=== PATIENT | male | born 1950 | race Hispanic/Latino ===

== ENCOUNTER 2024-07-15 15:16 | Inpatient (IN) | payer MEDICARE ==
[~2024-07-15] VITALS: Ht 162.6 cm; Wt 68.0 kg
[2024-07-15 16:45] VITALS: PULSE 68; RESP 17; TEMP 97.7
[2024-07-15] MEDS ORDERED: ONDANSETRON HCL INJ 2MG/ML 2ML 2 MG/ML VIAL ONE (17:00)
[2024-07-15] MEDS ORDERED: SODIUM CHLORIDE 0.9% 1000ML 1,000 ML ONE (17:00)
[2024-07-15] MEDS: SODIUM CHLORIDE 0.9% 1000ML 1,000 ML IV STA (17:08)
[2024-07-15] MEDS: ONDANSETRON HCL INJ 2MG/ML 2ML 2 MG/ML VIAL IV STA (17:08)
[2024-07-15 17:18] LABS: BASOPHILS % 0.1 % (0.0-1.0); EOSINOPHILS % 0.1 % (0.0-6.0); HEMOGLOBIN 14.2 g/dL (14.0-18.0); LYMPHOCYTES # (AUTO) 0.9 (1.0-3.2); LYMPHOCYTES % 6.8 % (18.0-39.1); MEAN CORPUSCULAR HEMOGLOBIN 27.4 pg (28-32); MEAN CORPUSCULAR HGB CONC 31.6 g/dL (31-35); MEAN CORPUSCULAR VOLUME 86.9 fL (81-99); MONOCYTES # (AUTO) 0.5 (0.2-0.8); MONOCYTES % 3.6 % (4.4-11.3); NEUTROPHILS # (AUTO) 12.1 (2.1-6.9); PLATELET COUNT 307 x10e3/uL (140-360); RED BLOOD COUNT 5.18 x10e6/uL (4.3-5.7); RED CELL DISTRIBUTION WIDTH 15.3 % (11.7-14.4); WHITE BLOOD COUNT 13.54 x10e3/uL (4.8-10.8)
[2024-07-15 17:39] LABS: ALANINE AMINOTRANSFERASE 21 IU/L (0-55); ALBUMIN 3.7 g/dL (3.5-5.0); ALKALINE PHOSPHATASE 85 IU/L (40-150); ANION GAP 17.4 mmol/L (8-16); BILIRUBIN,TOTAL 0.8 mg/dL (0.2-1.2); BLOOD UREA NITROGEN 17 mg/dL (7-26); BUN/CREATININE RATIO 17 (6-25); CALCIUM 9.2 mg/dL (8.4-10.2); CARBON DIOXIDE 23 mmol/L (22-29); CHLORIDE 105 mmol/L (98-107); CREATINE KINASE 46 IU/L (30-200); CREATININE, SERUM 0.99 mg/dL (0.72-1.25); EST GLOMERULAR FILTRATION RATE 80 ML/MIN (>=60); GLUCOSE 153 mg/dL (74-118); LIPASE 17 U/L (8-78); MAGNESIUM 2.2 MG/DL (1.3-2.1); POTASSIUM 4.4 mmol/L (3.5-5.1); SODIUM 141 mmol/L (136-145); TOTAL PROTEIN 7.5 g/dL (6.5-8.1)
[2024-07-15 17:44] LABS: INR 0.91; PROTHROMBIN TIME 12.8 seconds (11.9-14.5)
[2024-07-15 17:45] LABS: TROPONIN I < 0.001 ng/mL (0-0.300)
[2024-07-15] MEDS ORDERED: IOPAMIDOL 370 MG/ML 100 ML INFUS..BTL INJ ONE (17:52)
[2024-07-15] MEDS ORDERED: SODIUM CHLORIDE 0.9% 100 ML ONE (17:52)
[2024-07-15] MEDS: PROMETHAZINE 12.5MG/ NACL 0.9% 12.5 MG/50 ML BAG IV ONE (18:30)
[2024-07-15] MEDS: DIPHENHYDRAMINE HCL INJ 50 MG/ML VIAL IV ONE (18:30)
[2024-07-15] MEDS: Morphine 4mg INJECTION 4 MG/ML INJ IV STA (19:28)
[2024-07-15] MEDS: Morphine 4mg INJECTION 4 MG/ML INJ IV PRN (23:35)
[2024-07-15] MEDS: ONDANSETRON HCL INJ 2MG/ML 2ML 2 MG/ML VIAL IV PRN (23:35)
[2024-07-16] VITALS (9 sets, daily range): BP systolic 115–145; BP diastolic 61–75; PULSE 66–93; RESP 16–22; TEMP 97.9–98.8; O2SAT 95–98
[2024-07-16] MEDS ORDERED: ATORVASTATIN CA20 MG PO (02:49)
[2024-07-16 05:57] LABS: BASOPHILS % 0.2 % (0.0-1.0); HEMATOCRIT 46.1 % (38.2-49.6); HEMOGLOBIN 14.9 g/dL (14.0-18.0); LYMPHOCYTES # (AUTO) 1.2 (1.0-3.2); LYMPHOCYTES % 9.3 % (18.0-39.1); MEAN CORPUSCULAR HEMOGLOBIN 28.2 pg (28-32); MEAN CORPUSCULAR HGB CONC 32.3 g/dL (31-35); MEAN CORPUSCULAR VOLUME 87.3 fL (81-99); MONOCYTES # (AUTO) 0.9 (0.2-0.8); MONOCYTES % 6.7 % (4.4-11.3); NEUTROPHILS # (AUTO) 10.5 (2.1-6.9); NEUTROPHILS % 83.2 % (38.7-80.0); PLATELET COUNT 293 x10e3/uL (140-360); RED BLOOD COUNT 5.28 x10e6/uL (4.3-5.7); RED CELL DISTRIBUTION WIDTH 15.3 % (11.7-14.4); WHITE BLOOD COUNT 12.64 x10e3/uL (4.8-10.8)
[2024-07-16 06:12] LABS: ALBUMIN 3.4 g/dL (3.5-5.0); ALBUMIN/GLOBULIN RATIO 0.9 (0.8-2.0); BILIRUBIN,TOTAL 0.7 mg/dL (0.2-1.2); CALCIUM 8.9 mg/dL (8.4-10.2); CREATININE, SERUM 0.87 mg/dL (0.72-1.25); TOTAL PROTEIN 7.2 g/dL (6.5-8.1)
[2024-07-16 06:26] LABS: CREATINE KINASE 57 IU/L (30-200)
[2024-07-16 06:36] LABS: TROPONIN I < 0.001 ng/mL (0-0.300)
[2024-07-16] MEDS ORDERED: METOPROLOL TARTRATE INJ 1 MG/ML VIAL IV PRN (07:45)
[2024-07-16] MEDS ORDERED: MELATONIN 3 MG TAB PO PRN (07:45)
[2024-07-16] MEDS ORDERED: ALBUTEROL/IPRATROPIUM 3 ML NEB NEB PRN (07:45)
[2024-07-16] MEDS: SODIUM CHLORIDE 0.45% 1,000 ML IV SCH (09:59)
[2024-07-16] MEDS: FAMOTIDINE 20 MG/2 ML VIAL IV SCH (10:01)
[2024-07-16 14:00] LABS: CREATINE KINASE 120 IU/L (30-200)
[2024-07-16 14:09] LABS: TROPONIN I < 0.001 ng/mL (0-0.300)
[2024-07-16] MEDS: ENOXAPARIN SOD INJ 40 MG/0.4 ML SYR SC SCH (17:13)
[2024-07-16] MEDS ORDERED: ASPIRIN300 MG RC (19:20)
[2024-07-17] VITALS (9 sets, daily range): BP systolic 112–150; BP diastolic 71–85; PULSE 73–79; RESP 16–20; TEMP 97.8–99.1; O2SAT 95–98
[2024-07-17] MEDS ORDERED: ACETAMINOPHEN 1000 MG/100 ML 100 ML IV ONE (13:47)
[2024-07-17] MEDS ORDERED: FENTANYL CITRATE/PF 100MCG/2 ML INJ ONE ×2 (13:47→16:08)
[2024-07-17] MEDS ORDERED: PROPOFOL IV EMULSION 10 MG/ML 20 ML VIAL ONE (13:47)
[2024-07-17] MEDS ORDERED: SEVOFLURANE INHAL SOLN 250 ML PEN BTL ONE (13:47)
[2024-07-17] MEDS ORDERED: ROCURONIUM BROMIDE 1 ML IV ONE (13:47)
[2024-07-17] MEDS ORDERED: LIDOCAINE HCL 2% LOCAL INJ 5 ML SDV VIAL INJ ONE (13:47)
[2024-07-17] MEDS ORDERED: SUCCINYLCHOLINE CHLORIDE 20 MG/ML 10ML VIAL ONE (13:54)
[2024-07-17] MEDS ORDERED: PHENYLEPHRINE HCL 1% 10 MG/ML VIAL ONE (14:55)
[2024-07-17] MEDS ORDERED: SUGAMMADEX SODIUM 200 MG/2 ML VIAL IV ONE (15:16)
[2024-07-18] VITALS (10 sets, daily range): BP systolic 106–120; BP diastolic 67–76; PULSE 72–83; RESP 17–18; TEMP 98–98.7; O2SAT 95–98
[2024-07-18] MEDS: ACETAMINOPHEN 325 MG TAB PO PRN (05:20)
[2024-07-18 10:29] LABS: ANION GAP 17.8 mmol/L (8-16); CALCIUM 9.3 mg/dL (8.4-10.2); CREATININE, SERUM 1.06 mg/dL (0.72-1.25); POTASSIUM 3.8 mmol/L (3.5-5.1)
[2024-07-18 10:36] LABS: BASOPHILS % 0.1 % (0.0-1.0); HEMATOCRIT 48.1 % (38.2-49.6); HEMOGLOBIN 15.3 g/dL (14.0-18.0); LYMPHOCYTES # (AUTO) 1.5 (1.0-3.2); LYMPHOCYTES % 10.9 % (18.0-39.1); MEAN CORPUSCULAR HEMOGLOBIN 27.4 pg (28-32); MEAN CORPUSCULAR HGB CONC 31.8 g/dL (31-35); MEAN CORPUSCULAR VOLUME 86.2 fL (81-99); MONOCYTES % 7.2 % (4.4-11.3); NEUTROPHILS # (AUTO) 11.1 (2.1-6.9); NEUTROPHILS % 81.4 % (38.7-80.0); PLATELET COUNT 359 x10e3/uL (140-360); RED BLOOD COUNT 5.58 x10e6/uL (4.3-5.7); RED CELL DISTRIBUTION WIDTH 15.1 % (11.7-14.4); WHITE BLOOD COUNT 13.63 x10e3/uL (4.8-10.8)
[2024-07-19] VITALS (12 sets, daily range): BP systolic 96–126; BP diastolic 64–79; PULSE 66–103; RESP 17–18; TEMP 97.7–98.8; O2SAT 94–98
[2024-07-19 05:47] LABS: BASOPHILS % 0.1 % (0.0-1.0); EOSINOPHILS % 0.3 % (0.0-6.0); HEMOGLOBIN 13.2 g/dL (14.0-18.0); LYMPHOCYTES # (AUTO) 1.5 (1.0-3.2); LYMPHOCYTES % 16.9 % (18.0-39.1); MEAN CORPUSCULAR HEMOGLOBIN 27.4 pg (28-32); MEAN CORPUSCULAR HGB CONC 32.2 g/dL (31-35); MEAN CORPUSCULAR VOLUME 85.2 fL (81-99); MONOCYTES # (AUTO) 0.7 (0.2-0.8); MONOCYTES % 7.3 % (4.4-11.3); NEUTROPHILS # (AUTO) 6.8 (2.1-6.9); PLATELET COUNT 331 x10e3/uL (140-360); RED BLOOD COUNT 4.81 x10e6/uL (4.3-5.7); RED CELL DISTRIBUTION WIDTH 15.1 % (11.7-14.4); WHITE BLOOD COUNT 9.01 x10e3/uL (4.8-10.8)
[2024-07-19 06:15] LABS: ANION GAP 13.6 mmol/L (8-16); CALCIUM 7.9 mg/dL (8.4-10.2); CREATININE, SERUM 0.87 mg/dL (0.72-1.25); POTASSIUM 3.6 mmol/L (3.5-5.1)
[2024-07-19] MEDS: DOCUSATE SODIUM 100 MG CAP PO PRN (09:41)
[2024-07-19] MEDS: LACTULOSE SYRUP 20 GM/30 ML UDC PO ONE (11:48)
[2024-07-20 04:01] VITALS: BP 106/69; PULSE 70; RESP 18; TEMP 98.8; O2SAT 95
[2024-07-20 06:13] VITALS: PULSE 75; RESP 20; O2SAT 95
[2024-07-20 08:04] VITALS: BP 103/72; PULSE 87; RESP 18; TEMP 98.9; O2SAT 95
[2024-07-20 11:51] VITALS: BP 104/73; PULSE 78; RESP 17; TEMP 98.3; O2SAT 98
[2024-07-20] MEDS ORDERED: ACETAMINOPHEN325 M1 PO (19:26)
[2024-07-20] MEDS ORDERED: DOCUSATE SODIU100 MG PO (19:26)
[2024-07-20] MEDS ORDERED: Docusate Sodium PO (19:26)
[2024-07-20] MEDS ORDERED: METRONIDAZOLE500 MG PO (19:26)
[2024-07-20] MEDS ORDERED: CEPHALEXIN500 MG PO (19:26)
[2024-07-20] MEDS ORDERED: ONDANSETRON ODT4 MG PO (19:26)
[2024-07-20] MEDS ORDERED: METAMUCIL FIBE3.4 GM PO (19:27)
== END 2024-07-20 20:20 | disposition home or self-care (01) | DRG 418 ==
LOC: ER 17:03 → ERHOLD 19:38 → MED/SURG2 22:07
PROVIDERS: ADMIT Internal Medicine; ATTEND Internal Medicine
PROC: 0FT44ZZ Resection of Gallbladder, Percutaneous Endoscopic Approach (ICD-10-PCS; principal; 2024-07-17 14:47)
DX: K81.0 Acute cholecystitis (principal); K56.7 Ileus, unspecified; K76.0 Fatty (change of) liver, not elsewhere classified; I70.0 Atherosclerosis of aorta; R91.1 Solitary pulmonary nodule; I71.43 Infrarenal abdominal aortic aneurysm, without rupture; I25.10 Atherosclerotic heart disease of native coronary artery without angina pectoris; K21.9 Gastro-esophageal reflux disease without esophagitis; I95.9 Hypotension, unspecified; N28.1 Cyst of kidney, acquired; R33.9 Retention of urine, unspecified; R11.2 Nausea with vomiting, unspecified; K57.90 Diverticulosis of intestine, part unspecified, without perforation or abscess without bleeding; Z87.891 Personal history of nicotine dependence
CPT/HCPCS: 36415; 71045; 71275; 74018; 74174; 76705; 80048; 80053; 82550; 83690; 83735; 84484; 85025; 85610; 85730; 88304; 93005; 93306; 94799; 99284; J0330; J1200; J1650; J2003; J2270; J2371; J2405; J2470; J2543; J2550; J7030; J7050; Q9967